=== PATIENT | male | born 1935 | race Caucasian/White ===

== ENCOUNTER → 2019-02-26 | Outpatient (CLI) | payer MEDICARE, MEDICAID ==
[~2019-02-26] MED LIST: ACET325T14 PO; ALBU18HF IH; ALBU2.5V NEB; AMLO-150 PO; AMLO5TAB4 PO; AMOX1TAB64 PO; ASPI-496 PO; CARB15DR5 OP; CARV25TA12 PO; CITA20TA6 PO; CLOT15CR4 TP; DOCU100C33 PO; GUAI237S4 PO; LISI-167 PO; MEMA10TA PO; NITR100C PO; NYST15PO9 TP; QUET25TA7 PO; SULF-169 PO; TAMS0.4C2 PO; TRAZ-137 PO; VALP250C PO
== END | disposition home or self-care (01) ==
LOC: CFH 15:10
PROVIDERS: ATTEND Registered Nurse
DX: N21.0 Calculus in bladder (principal); N40.2 Nodular prostate without lower urinary tract symptoms
CPT/HCPCS: 74018

== ENCOUNTER 2020-03-30 07:02 | Emergency (ER) | payer MEDICARE, MEDICAID ==
[~2020-03-30] VITALS: Ht 175.3 cm; Wt 60.0 kg
[~2020-03-30 07:02] MED LIST changes: -TRAZ-137 PO; +TRAZ-175 PO
--- NOTE | 2020-03-30 07:21 | NUR ---
PHLEBOTOMY IS AT THE BEDSIDE FOR BLOOD SAMPLING.
[2020-03-30 07:23] VITALS: BP 93/62
--- NOTE | 2020-03-30 07:30 | NUR ---
pt to ct w tech
[2020-03-30 07:31] LABS: BASOPHILS # (AUTO) 0.04 x10^3/uL (0-0.1); BASOPHILS % (AUTO) 0 % (0-1); EOSINOPHILS % (AUTO) 3 % (1-7); LYMPHOCYTES % (AUTO) 19 % (22-44); MD NO; MEAN CORPUSCULAR HEMOGLOBIN 30.1 pg (27.5-34.5); MEAN CORPUSCULAR HGB CONC 31.5 g/dL (33.2-36.2); MEAN CORPUSCULAR VOLUME 95.3 fL (81-97); MEAN PLATELET VOLUME 7.9 fL (7.4-10.4); MONOCYTES # (AUTO) 1.34 x10^3/uL (0.2-0.8); MONOCYTES % (AUTO) 11 % (2-9); NEUTROPHILS # (AUTO) 8.19 x10^3/uL (1.8-6.8); NEUTROPHILS % (AUTO) 67 % (42-75); PLATELET COUNT 251 x10^3/uL (130-400); RED BLOOD COUNT 4.32 x10^6/uL (4.38-5.82); RED CELL DISTRIBUTION WIDTH 14.5 % (9.4-14.8)
--- NOTE | 2020-03-30 07:39 | NUR ---
pt returned from [facility]. room changed to room #2. we are awaiting the results of diagnostics prior to any further plan of care.
[2020-03-30 07:41] LABS: ALBUMIN 2.5 g/dL (3.4-5.0); ANION GAP 3 mmol/L (5-15); CALCIUM 8.2 mg/dL (8.5-10.1); CHLORIDE 111 mmol/L (98-107); CREATININE 1.02 mg/dL (0.7-1.3)
--- NOTE | 2020-03-30 08:25 | NUR ---
CLEANED PT W SOAP AND WATER FROM HEAD TO TOE. NO OTHER SIGNS OF BLEEDING DISCOVERED.
--- NOTE | 2020-03-30 08:37 | NUR ---
I HAVE SPOKEN WITH THE OUTSOLE HANDLER AT [facility]. THY DO NOT HAVE TRANSPORT AVAILABLE TODAY. WE WILL SET UP MEDICAL TRANSPORT SOON PUBLIC SERVICE OPENS. KEVIN PROVIDED, AND APPRECIATED.
--- NOTE | 2020-03-30 09:14 | NUR ---
KEVIN DELIVERED AND APPRECIATED. WE ARE AWAITING TRANSPORTATION SERVICE TO OPEN FOR THE DAY PRIOR TO TRANSPORT HOME.
--- NOTE | 2020-03-30 09:35 | NUR ---
Break RN note: Pt resting in bed with eyes closed, resp even and unlabored, JAQUAN. Awaiting [facility] transport back to his home.
--- NOTE | 2020-03-30 11:03 | NUR ---
pt awaiting ride home. no acute changes noted since his my last assessment. he is resting comfortably on an e.r. gurney w stable vs. i will continue to monitor and treat as ordered, as well as prn while awaiting ride home.
== END 2020-03-30 12:03 | disposition home or self-care (01) ==
LOC: ED 08:23
DX: R04.0 Epistaxis (principal); R42 Dizziness and giddiness; R51 Headache; R94.31 Abnormal electrocardiogram [ECG] [EKG]; I10 Essential (primary) hypertension; J44.9 Chronic obstructive pulmonary disease, unspecified; Z86.73 Personal history of transient ischemic attack (TIA), and cerebral infarction without residual deficits; Z86.59 Personal history of other mental and behavioral disorders
CPT/HCPCS: 36415; 70450; 80048; 82040; 85025; 93005; 99285

== ENCOUNTER 2020-05-05 04:09 | Observation (INO) | payer MEDICARE, MEDICAID ==
[~2020-05-05] VITALS: Ht 177.8 cm; Wt 59.8 kg
--- NOTE | 2020-05-05 04:47 | NUR ---
pt confused about situation and attempting to get out of bed. pt high fall risk. care transfered to TEMO franklin in a camera monitored room with a sitter at doorway for frequent checks.
--- NOTE | 2020-05-05 04:47 | NUR ---
MATILDE LAM FROM A INTERMEDIATE. PT FELL AND HIT HIS HEAD AT 0000 THIS EVENING, UNWITNESSED AND UNKNOWN LOC. PT WITH DEMENTIA AND STAFF STATES PT NEURO IS AT BASELINE. PT A+O TO SELF AND PLACE.
[2020-05-05] MEDS ORDERED: LIDOCAINE 1%-EPI 1:100K, 20ML SQ ONE (05:00)
[2020-05-05 05:29] LABS: ALBUMIN 2.5 g/dL (3.4-5.0); ANION GAP 7 mmol/L (5-15); CALCIUM 8.1 mg/dL (8.5-10.1); CHLORIDE 112 mmol/L (98-107); CREATININE 1.01 mg/dL (0.7-1.3)
[2020-05-05 05:31] LABS: BASOPHILS # (AUTO) 0.02 x10^3/uL (0-0.1); BASOPHILS % (AUTO) 0 % (0-1); EOSINOPHILS # (AUTO) 0.16 x10^3/uL (0-0.4); EOSINOPHILS % (AUTO) 2 % (1-7); LYMPHOCYTES # (AUTO) 1.04 x10^3/uL (1-3.4); LYMPHOCYTES % (AUTO) 12 % (22-44); MD NO; MEAN CORPUSCULAR HEMOGLOBIN 29.4 pg (27.5-34.5); MEAN CORPUSCULAR HGB CONC 31.4 g/dL (33.2-36.2); MEAN CORPUSCULAR VOLUME 93.7 fL (81-97); MEAN PLATELET VOLUME 8.5 fL (7.4-10.4); MONOCYTES # (AUTO) 0.98 x10^3/uL (0.2-0.8); MONOCYTES % (AUTO) 11 % (2-9); NEUTROPHILS # (AUTO) 6.84 x10^3/uL (1.8-6.8); NEUTROPHILS % (AUTO) 76 % (42-75); PLATELET COUNT 272 x10^3/uL (130-400); RED BLOOD COUNT 3.83 x10^6/uL (4.38-5.82); RED CELL DISTRIBUTION WIDTH 16.1 % (9.4-14.8)
[2020-05-05] MEDS ORDERED: LIDOCAINE 1%-EPI 1:100K, 20ML ONE (05:48)
[2020-05-05] MEDS ORDERED: DEXTROSE 10% 250 ML IV ONE (06:00)
[2020-05-05] MEDS ORDERED: DEXTROSE 10%, 250ML IV ONE (06:00)
[2020-05-05] MEDS ORDERED: DEXTROSE 10% 250 ML IV SCH (06:00)
[2020-05-05] MEDS ORDERED: SODIUM CHLORIDE 0.9% 1,000ML IVBOLUS ONE (06:00)
[2020-05-05] MEDS ORDERED: OMNIPAQUE 350 MG/ML, 100ML BOTTLE ONE (06:20)
[2020-05-05 06:44] LABS: MICROSCOPIC INDICATED
--- NOTE | 2020-05-05 07:00 | NUR ---
PT PLACED IN POSSY VEST BECAUSE PT WILL NOT STAY IN BED. PT C-COLAR ATTEMOED TO BE PLACED MULTIPLE TIMES WITH PT PULLING IT OFF EACH TIME
--- NOTE | 2020-05-05 07:01 | NUR ---
RECEIVED REPORT FROM ELIZABETH. PT UPRIGHT ON GURNEY AWAKE & MOSTLY COOPERATIVE, PT FORGETFUL & REQUIRES MOD AMT REDIRECTION, RESPONDS TO STAFF QUESTIONS, NAD WITH IDA VEST IN PLACE & SITTER IN FULL VIEW, COMFORT MEASURES PROVIDED, CALL LIGHT WITHIN REACH.
[2020-05-05] MEDS ORDERED: CEFTRIAXONE PMX 1GM/50ML 50 ML IV ONE (07:30)
[2020-05-05] MEDS ORDERED: CEFTRIAXONE PMX 1GM/50ML 50 ML ONE (07:36)
--- NOTE | 2020-05-05 08:02 | NUR ---
PT REMAINS UPRIGHT ON GURNEY AWAKE & MOSTLY COOPERATIVE, PT CONTINUES TO REQUIRE MOD AMT REDIRECTION, RESPONDS TO STAFF QUESTIONS, NAD WITH IDA VEST IN PLACE & SITTER IN FULL VIEW, COMFORT MEASURES PROVIDED INCL LINEN/GOWN CHANGE FOR OCCAS URINE IN CONTINENCE, CALL LIGHT WITHIN REACH.
[2020-05-05] MEDS ORDERED: ACETAMINOPHEN 325 MG TABLET PO PRN (09:00)
[2020-05-05] MEDS ORDERED: ONDANSETRON 2MG/ML, 2ML IVPush PRN (09:00)
[2020-05-05] MEDS ORDERED: MELATONIN 5 MG TABLET PO PRN (09:00)
[2020-05-05] MEDS ORDERED: DOCUSATE 100 MG CAPSULE PO PRN (09:00)
[2020-05-05] MEDS ORDERED: ONDANSETRON ODT 4 MG PO PRN (09:00)
[2020-05-05 10:24] VITALS: BP 128/83
[2020-05-05 13:50] VITALS: BP 145/78
[2020-05-05 19:40] VITALS: BP 160/91
[2020-05-06 02:07] VITALS: BP 186/93
[2020-05-06 04:47] LABS: BASOPHILS # (AUTO) 0.03 x10^3/uL (0-0.1); BASOPHILS % (AUTO) 0 % (0-1); EOSINOPHILS # (AUTO) 0.26 x10^3/uL (0-0.4); EOSINOPHILS % (AUTO) 4 % (1-7); LYMPHOCYTES # (AUTO) 1.54 x10^3/uL (1-3.4); LYMPHOCYTES % (AUTO) 21 % (22-44); MD NO; MEAN CORPUSCULAR HEMOGLOBIN 29.9 pg (27.5-34.5); MEAN CORPUSCULAR HGB CONC 32.1 g/dL (33.2-36.2); MEAN CORPUSCULAR VOLUME 93.1 fL (81-97); MEAN PLATELET VOLUME 8.5 fL (7.4-10.4); MONOCYTES # (AUTO) 1.13 x10^3/uL (0.2-0.8); MONOCYTES % (AUTO) 16 % (2-9); NEUTROPHILS # (AUTO) 4.25 x10^3/uL (1.8-6.8); NEUTROPHILS % (AUTO) 59 % (42-75); PLATELET COUNT 217 x10^3/uL (130-400); RED BLOOD COUNT 3.08 x10^6/uL (4.38-5.82); RED CELL DISTRIBUTION WIDTH 16.3 % (9.4-14.8)
[2020-05-06 04:50] LABS: ANION GAP 5 mmol/L (5-15); CHLORIDE 115 mmol/L (98-107); CREATININE 0.72 mg/dL (0.7-1.3)
[2020-05-06 07:08] VITALS: BP 141/84
[2020-05-06] MEDS ORDERED: CEFTRIAXONE PMX 1GM/50ML 50 ML IV SCH (08:00)
[2020-05-06] MEDS ORDERED: NITR100C56 PO (11:51)
[2020-05-06 14:57] VITALS: BP 139/89
== END 2020-05-06 17:32 | disposition hospice, home (50) ==
LOC: ED 06:02 → INTOOBSV 07:31 → EDIP 07:31 → SUATTDRO 07:41 → 4NW 09:30
PROVIDERS: ADMIT Emergency Medicine; ATTEND Hospitalist
DX: N39.0 Urinary tract infection, site not specified (principal); Z20.828 Contact with and (suspected) exposure to other viral communicable diseases; B95.2 Enterococcus as the cause of diseases classified elsewhere; R91.8 Other nonspecific abnormal finding of lung field; J96.01 Acute respiratory failure with hypoxia; S01.81XA Laceration without foreign body of other part of head, initial encounter; G30.9 Alzheimer's disease, unspecified; F02.80 Dementia in other diseases classified elsewhere, unspecified severity, without behavioral disturbance, psychotic disturbance, mood disturbance, and anxiety; J44.9 Chronic obstructive pulmonary disease, unspecified; I10 Essential (primary) hypertension; E16.2 Hypoglycemia, unspecified; I62.9 Nontraumatic intracranial hemorrhage, unspecified; C34.91 Malignant neoplasm of unspecified part of right bronchus or lung; E44.1 Mild protein-calorie malnutrition; R53.81 Other malaise; N40.0 Benign prostatic hyperplasia without lower urinary tract symptoms; K21.9 Gastro-esophageal reflux disease without esophagitis; G89.29 Other chronic pain; J90 Pleural effusion, not elsewhere classified; Z66 Do not resuscitate; Z86.73 Personal history of transient ischemic attack (TIA), and cerebral infarction without residual deficits; Z79.899 Other long term (current) drug therapy; Z87.440 Personal history of urinary (tract) infections; Z72.0 Tobacco use; W01.0XXA Fall on same level from slipping, tripping and stumbling without subsequent striking against object, initial encounter; Y93.89 Activity, other specified; Y92.89 Other specified places as the place of occurrence of the external cause
CPT/HCPCS: 36415; 70450; 71045; 71275; 72125; 80048; 81001; 82040; 83605; 84145; 85025; 87040; 87077; 87086; 87186; 87635; 93005; 96361; 96365; 96366; 97162; 97166; 99285; G0378; J0696; J3490; J7030; Q9967